=== PATIENT | male | born 1995 | race American Indian/Alaskan Native ===

== ENCOUNTER 2020-10-12 07:31 | Emergency (ER) | payer SELFPAY ==
[2020-10-12 07:50] VITALS: BP 156/88
--- NOTE | 2020-10-12 08:02 | Emergency Department Report ---
Chief Complaint: Back Pain/Injury Stated Complaint: lower back pains Time Seen by Provider: 10/12/20 07:58 - HPI History of Present Illness: 25-year-old obese -[place] male presents to the emergency room complaining of exacerbation of his chronic back pain x1 week. Patient denies any injury. Patient states that he is coming in for a work excuse. Patient states he last took ibuprofen 10/06/2020. 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 Patient denies any injury. - Exam Vital Signs: Vital Signs 10/12/20 07:49 Temperature 98.8 F Pulse Rate 87 Respiratory 18 Rate Blood Pressure 156/88 O2 Sat by Pulse 99 Oximetry Physical Exam: Alert and oriented x3 no acute distress nontoxic in appearance Patient has no respiratory distress Heart rate is regular Back full range of motion mild tenderness to sacral Ambulatory without difficulties MSE screening note: Focused history and physical exam performed. Due to findings the following was ordered: 25-year-old obese -[place] male presents to the emergency room complaining of exacerbation of his chronic back pain x1 week. Patient denies any injury. Patient states that he is coming in for a work excuse. Patient states he last took ibuprofen 10/06/2020. 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 Patient denies any injury. Discussed with patient that this is a chronic complaint and it needs to be followed up with his primary care provider. Discussed with patient he can continue with ibuprofen. Discussed the patient most likely has exacerbation of his chronic back pain is due to working in the warehouse and on his feet for long periods of time. ED Disposition for MSE Disposition: -01 TO HOME OR SELFCARE Is pt being admited?: No Does the pt Need Aspirin: No Condition: Stable Additional Instructions: Please follow-up with your primary care provider as this is a chronic issue. You can continue with ibuprofen. Increase your fluid intake. Understand that standing a lot on your feet can also exacerbate your back pain. Referrals: [facility] [Provider Group] - 3-5 Days Time of Disposition: 08:03
== END 2020-10-12 08:38 | disposition home or self-care (01) ==
LOC: ED 07:31
DX: G89.29 Other chronic pain (principal); M54.5 Low back pain
CPT/HCPCS: 99281